=== PATIENT | male | born 1990 | race African-American/Black ===

== ENCOUNTER 2024-09-18 21:36 | Emergency (ER) | payer OTHER, SELFPAY ==
[2024-09-18 21:37] VITALS: BP 157/104; PULSE 74; RESP 14; TEMP 36.4; O2SAT 100
--- NOTE | 2024-09-18 22:25 | ED_ITS ---
HPI - Dental/Oral General Chief complaint: Dental/Oral Stated complaint: dental pain after tooth got pulled Time Seen by Provider: 09/18/24 21:52 History of Present Illness HPI Narrative: 34-year-old male presents to the emergency department for dental pain for 4 days. Patient states 4 days ago he walked into [facility] [employer] [facility] to have his tooth extracted. States it was extracted but since then has been having increasing pain and purulent drainage from the site of the extraction. He has not followed up with [facility] because he is unsure how to get contact with them. He is not taking antibiotics. He has been taking Tylenol ibuprofen without improvement. No past medical history. No fever, difficulty breathing or swallowing. Related Data Allergies Allergy/AdvReac Type Severity Reaction Status Date / Time No Known Allergies Allergy Unknown Verified 07/16/18 23:20 Review of Systems Review of Systems: All systems reviewed & are unremarkable except as noted in HPI and below Exam Narrative: GENERAL: Well-appearing, well-nourished, and in no acute distress. HEAD: Normocephalic, atraumatic. EYES: EOMI. ENT: Nares clear, no rhinorrhea or epistaxis. Mucous membranes moist. Bilateral TMs are quiles nonbulging with normal canals. Tooth #12 extracted with hole at site, purulent drainage noted deep in the space with surrounding gingival inflammation erythema, no definitive abscess to drain, no mandibular edema, no posterior pharynx edema, no trismus. No difficulty breathing or swallowing. Speaking in full sentences, no dysphonia. NECK: Supple. CHEST: Clear to auscultation. No respiratory distress. HEART: Regular rate and rhythm. No murmur heard. Normal peripheral pulses. EXTREMITIES: Normal range of motion. No edema. SKIN: Warm, dry, no rash. NEURO: No focal deficits. Alert and oriented x3 Course Vital Signs Vital signs: Vital Signs Temperature 97.5 F L 09/18/24 21:37 Pulse Rate 74 09/18/24 21:37 Respiratory Rate 14 09/18/24 21:37 Blood Pressure 157/104 H 09/18/24 21:37 Pulse Oximetry 100 09/18/24 21:37 Oxygen Delivery Room Air 09/18/24 21:37 Temperature 97.5 F L 09/18/24 21:37 Pulse Rate 74 09/18/24 21:37 Respiratory Rate 14 09/18/24 21:37 Blood Pressure 157/104 H 09/18/24 21:37 Pulse Oximetry 100 09/18/24 21:37 Oxygen Delivery Room Air 09/18/24 21:37 MDM - Dental/Oral MDM Narrative Medical decision making narrative: 34-year-old male presents to the emergency department for dental pain for 4 days after having his tooth #12 extracted at [facility] 4 days ago. Vitals and elevated blood pressure, otherwise unremarkable. He is afebrile and nontoxic appearing. Exam is significant a cavity in the space where to #12 was extracted with purulence at the base of the wound, surrounding erythema gingival edema. There is otherwise no evidence of T6 infection or overlying cellulitis. No trismus, difficulty breathing or swallowing, no dysphonia. Will start patient on Augmentin, encouraged ibuprofen for pain and [place] for breakthrough pain. Advised close follow-up with [facility] discuss strict ED return precautions. He is agreeable to plan verbalized understanding. Discharged in stable condition. Discharge Plan Discharge Clinical Impression: Dental infection Patient Disposition: Home, Self-Care Condition: Stable Instructions: Antibiotic Form, Dental Abscess (ED) Additional Instructions: Take antibiotics as directed. Follow-up with [facility] at [phone]. Take 100 mg of ibuprofen as needed for pain and [place] for breakthrough pain. Return to the emergency department if you develop a fever, difficulty breathing, difficulty swallowing or other concerning symptoms. Patient Language: Surinamese Prescriptions: New amoxicillin-pot clavulanate 875-125 mg tablet 1 tablet PO Q12H Qty: 14 0RF hydrocodone-acetaminophen 5-325 mg tablet 1 tablet PO Q8H PRN (Reason: pain) Qty: 14 0RF Follow-up/Referrals: PHYSICIAN,[employer] [Primary Care Provider] - Stand Alone Forms: Work/School Release IP
[2024-09-18] MEDS: HYDROcodone/acetaminophen (*CRX) 5-325 MG TABLET 1 TAB PO (22:41)
[2024-09-18] MEDS: AMOXICILLIN/CLAVULANATE K 875-125 MG TAB 1 TABLET PO (22:41)
== END 2024-09-18 23:06 | disposition home or self-care (01) ==
PROVIDERS: Emergency Provider Physician Assistant
DX: K04.7 Periapical abscess without sinus (principal)
CPT/HCPCS: 99283; A9270